=== PATIENT | male | born 1990 | race Hispanic/Latino ===

== ENCOUNTER 2021-11-14 18:12 | Emergency (ER) | payer SELFPAY ==
--- NOTE | 2021-11-14 18:32 | EDPHYS ---
Physician Documentation [facility] Name: Blake Barron Jr Age: 31 yrs Sex: Male : 1990 Arrival Date: 11/14/2021 Time: 18:15 Bed 16 Private MD: ED Physician David Arciniega HPI: 11/14 18:46 This 31 yrs old Male presents to ER via Ambulatory with complaints of Skin kb Problem - chest/abd. 18:46 The patient has not experienced similar symptoms in the past. The patient has not kb recently seen a physician. Historical: - Allergies: 18:19 No Known Allergies; jd3 - Home Meds: 18:19 None [Active]; jd3 - PMHx: 18:19 None; jd3 - PSHx: 18:19 None; jd3 - Immunization history:: Adult Immunizations up to date, Client reports having NOT received the Covid vaccine. Flu vaccine is not up to date. - Social history:: Smoking status: Reported history of juuling and/or vaping. ROS: 18:45 Constitutional: Negative for fever, chills, and weight loss. kb 18:45 Skin: Positive for abscess, of the chest and abdomen. 18:45 All other systems are negative. Exam: 18:45 Constitutional: This is a well developed, well nourished patient who is awake, alert, kb and in no acute distress. Head/Face: Normocephalic, atraumatic. ENT: Moist Mucous membranes Respiratory: Respirations even and unlabored. No increased work of breathing. Talking in full sentences MS/ Extremity: Pulses equal, no cyanosis. Neurovascular intact. Full, normal range of motion. Neuro: Awake and alert, GCS 15, oriented to person, place, time, and situation. Moves all extremities. Normal gait. Psych: Awake, alert, with orientation to person, place and time. Behavior, mood, and affect are within normal limits. 18:45 Skin: abscess, that is small, of the abdomen and chest, several small abscesses to chest wall, one small abscess to abd. No drainable abscesses. Vital Signs: 18:19 BP 157 / 92; Pulse 79; Resp 18 S; Temp 99.5(TE); Pulse Ox 99% on R/A; Weight 104.33 kg jd3 (R); Height 5 ft. 6 in. (167.64 cm) (R); Pain 0/10; 18:19 Body Mass Index 37.12 (104.33 kg, 167.64 cm) jd3 MDM: 18:20 Patient medically screened. kb 18:31 Data reviewed: vital signs, nurses notes. Data interpreted: Pulse oximetry: on room air kb is 99 %. Interpretation: normal. Counseling: I had a detailed discussion with the patient and/or guardian regarding: the historical points, exam findings, and any diagnostic results supporting the discharge/admit diagnosis, the need for outpatient follow up, a family practitioner, to return to the emergency department if symptoms worsen or persist or if there are any questions or concerns that arise at home. Administered Medications: 19:18 Drug: Bactrim (trimethoprim-sulfamethoxazole) (160 mg-800 mg (DS) 1 tablet Route: PO; ll3 Disposition: 11/15 07:25 Co-signature as Attending Physician, David Arciniega MD I agree with the assessment and kdr plan of care. Disposition Summary: 11/14/21 18:32 Discharge Ordered Location: Home kb Condition: Stable kb Diagnosis - Local infection of the skin and subcutaneous tissue, unspecified kb Followup: kb - With: Emergency Department - When: As needed - Reason: Worsening of condition Followup: kb - With: Private Physician - When: 2 - 3 days - Reason: Recheck today's complaints, Continuance of care, Re-evaluation by your physician Discharge Instructions: - Discharge Summary Sheet kb - Skin Abscess, [id number] kb - Form - Return To Work tw5 Forms: - Medication Reconciliation Form kb - Thank You Letter kb - Antibiotic Education kb - Prescription Opioid Use kb - Work release form tw5 Prescriptions: - Bactrim DS 800-160 mg Oral Tablet - take 1 tablet by ORAL route every 12 hours for 10 days; 20 tablet; Refills: 0, kb Product Selection Permitted Signatures: Quyen Bella, ELENA-Ju PARKER-David Moise MD MD kdr Davies, Jonathon, RN RN jd3 Mahesh Davila RN RN ll3
--- NOTE | 2021-11-14 18:32 | ER ---
Nurse's Notes [facility] Name: Blake Barron Jr Age: 31 yrs Sex: Male : 1990 Arrival Date: 11/14/2021 Time: 18:15 Bed 16 Private MD: Diagnosis: Local infection of the skin and subcutaneous tissue, unspecified Presentation: 11/14 18:18 Chief complaint: Patient states: "I got these skin problems on my stomach and my chest. jd3 I need to get them looked at.". Coronavirus screen: At this time, the client does not indicate any symptoms associated with coronavirus-19. Ebola Screen: No symptoms or risks identified at this time. Initial Sepsis Screen: Does the patient meet any 2 criteria? No. Patient's initial sepsis screen is negative. Does the patient have a suspected source of infection? No. Patient's initial sepsis screen is negative. Risk Assessment: Do you want to hurt yourself or someone else? Patient reports no desire to harm self or others. Onset of symptoms was November 14, 2021. 18:18 Method Of Arrival: Ambulatory jd3 18:18 Acuity: EMPERATRIZ 4 jd3 Triage Assessment: 19:18 General: Appears comfortable, Behavior is calm. Pain: Denies pain. ll3 Historical: - Allergies: 18:19 No Known Allergies; jd3 - Home Meds: 18:19 None [Active]; jd3 - PMHx: 18:19 None; jd3 - PSHx: 18:19 None; jd3 - Immunization history:: Adult Immunizations up to date, Client reports having NOT received the Covid vaccine. Flu vaccine is not up to date. - Social history:: Smoking status: Reported history of juuling and/or vaping. Screenin:18 Abuse screen: Denies threats or abuse. Nutritional screening: No deficits noted. ll3 Tuberculosis screening: No symptoms or risk factors identified. Fall Risk None identified. Vital Signs: 18:19 BP 157 / 92; Pulse 79; Resp 18 S; Temp 99.5(TE); Pulse Ox 99% on R/A; Weight 104.33 kg jd3 (R); Height 5 ft. 6 in. (167.64 cm) (R); Pain 0/10; 18:19 Body Mass Index 37.12 (104.33 kg, 167.64 cm) jd3 ED Course: 18:15 Patient arrived in ED. as 18:19 Triage completed. jd3 18:19 Quyen Bella FNP-C is [facility]. kb 18:19 David Arciniega MD is Attending Physician. kb 18:20 Arm band placed on. jd3 19:18 Patient has correct armband on for positive identification. Call light in reach. Side ll3 rails up X 1. 19:18 No provider procedures requiring assistance completed. Patient did not have IV access ll3 during this emergency room visit. Administered Medications: 19:18 Drug: Bactrim (trimethoprim-sulfamethoxazole) (160 mg-800 mg (DS) 1 tablet Route: PO; ll3 Outcome: 18:32 Discharge ordered by . kb 19:18 Discharged to home ambulatory. ll3 19:18 Condition: stable 19:18 Discharge instructions given to patient, Instructed on discharge instructions, follow up and referral plans. medication usage, Demonstrated understanding of instructions, follow-up care, medications, Prescriptions given X 1. 19:19 Patient left the ED. ll3 Signatures: Quyen Bella FNP-C FNP-Yany Eason Jonathon RN RN jd3 Mahesh Davila RN RN ll3
[2021-11-14] MEDS ORDERED: SMZ./TMP. 800/160 MG TABLET ONE (19:14)
[2021-11-15 04:09] VITALS: BP 157/92; TEMP 99.5; O2SAT 99
== END 2021-11-14 19:19 | disposition home or self-care (01) ==
LOC: ER 18:12
DX: L08.9 Local infection of the skin and subcutaneous tissue, unspecified (principal)
CPT/HCPCS: 99283

== ENCOUNTER 2021-11-27 20:10 | Emergency (ER) | payer SELFPAY ==
--- OUTSIDE RECORDS SUMMARY | 2021-11-27 20:14 | XMS REPORT | Continuity of Care Document ---
:1990 Author Organization [facility] t Address [address] [place] [address] Care Team Providers Name Role Phone GURINDER Attending Clinician Unavailable GURINDER Admitting Clinician Unavailable Payers Payer Name Policy Type Policy Number Effective Date Expiration Date S ource Problems This patient has no known problems. Allergies, Adverse Reactions, Alerts This patient has no known allergies or adverse reactions. Medications This patient has no known medications. Procedures This patient has no known procedures. Encounters Start End Encounter Admission Attending Care Care Encounter Source Date/Time Date/Time Type Type Clinicians Facility Department ID 2021-09-05 2021-09-05 Outpatient SHELL JIANG [facility] [phone] [place] 07:08:00 07:08:00 _ANN da [facility] 2020-05-02 2020-05-02 Outpatient SHELL JIANG [facility] [phone] [place] 03:12:00 03:12:00 _ANN [id number] da [facility] 2020-04-18 2020-04-18 Outpatient CHERYL_SIMIN JIANG [facility] [phone] [place] 11:01:00 11:01:00 _ANN [id number] da [facility] Results This patient has no known results.
--- NOTE | 2021-11-27 21:47 | ER ---
Nurse's Notes [facility] Name: Blake Barron Jr Age: 31 yrs Sex: Male : 1990 Arrival Date: 11/27/2021 Time: 20:15 Bed Waiting Private MD: Diagnosis: ED Course: 11/27 20:15 Patient arrived in ED. kz 20:57 [facility] cp 20:57 Stuart Ribeiro MD is Attending Physician. cp 21:08 Patient's name was called from ER [employer]. No response. lp1 21:30 Patient's name was called from ER [employer]. No response. Unable to locate patient. Will lp1 disposition as left without being seen by a provider. Administered Medications: No medications were administered Outcome: 21:46 Patient left the ED. lp1 Signatures: Katie Langley RN RN lp1 Flynn Aragon PA PA cp Zapata, Kelly k
== END 2021-11-27 21:46 | disposition left against medical advice (07) ==
LOC: ER 20:10
DX: Z02.9 Encounter for administrative examinations, unspecified (principal)

== ENCOUNTER 2021-11-28 18:00 | Emergency (ER) | payer SELFPAY ==
--- OUTSIDE RECORDS SUMMARY | 2021-11-28 18:06 | XMS REPORT | Continuity of Care Document ---
:1990 Author Organization [facility] t Address [address] [place] [place] [address] Care Team Providers Name Role Phone GURINDER [...] Department ID 2021-09-05 2021-09-05 Outpatient SHELL JIANG [facility] [phone] [place] 07:08:00 07:08:00 _ANN da [facility] 2020-05-02 2020-05-02 Outpatient SHELL JIANG [facility] [phone] [place] 03:12:00 03:12:00 _ANN [id number] da [facility] 2020-04-18 2020-04-18 Outpatient CHERYL_SIMIN JIANG [facility] [phone] [place] 11:01:00 11:01:00 _ANN [id number] da [facility] Results This patient has no known results.
[2021-11-28 19:35] LABS: SARS-COV-2 RT PCR NEGATIVE (NEGATIVE)
--- NOTE | 2021-11-28 19:37 | EDPHYS ---
Physician Documentation [facility] Name: Blake Barron Jr Age: 31 yrs Sex: Male : 1990 Arrival Date: 11/28/2021 Time: 18:01 Bed Waiting Private MD: MG Physician Flynn Tobias HPI: 11/28 19:02 This 31 yrs old Male presents to ER via Ambulatory with complaints of Sore la1 Throat, Cough. 19:02 The patient presents with sore throat. The patient describes throat pain as burning. la1 Onset: The symptoms/episode began/occurred 2 day(s) ago. Severity of symptoms: At their worst the symptoms were mild. Modifying factors: The symptoms are alleviated by nothing, the symptoms are aggravated by swallowing, Patient's oral intake status: good The patient has had contact with sick mother. Associated signs and symptoms: Pertinent positives: cough. The patient has not experienced similar symptoms in the past. Cough and sore throat. Historical: - Allergies: 18:38 No Known Allergies; ab2 - PMHx: 18:38 None; ab2 - PSHx: 18:38 None; ab2 - Immunization history:: Adult Immunizations up to date. - Social history:: Smoking status: Reported history of juuling and/or vaping. ROS: 19:02 Eyes: Negative for injury, pain, redness, and discharge, Cardiovascular: Negative for la1 chest pain, palpitations, and edema, Abdomen/GI: Negative for abdominal pain, nausea, vomiting, diarrhea, and constipation, Back: Negative for injury and pain, MS/Extremity: Negative for injury and deformity, Neuro: Negative for headache, weakness, numbness, tingling, and seizure. 19:02 Constitutional: Positive for malaise. 19:02 ENT: Positive for sore throat. 19:02 Respiratory: Positive for cough. Exam: 19:03 Constitutional: This is a well developed, well nourished patient who is awake, alert, la1 and in no acute distress. Head/Face: Normocephalic, atraumatic. Eyes: Pupils equal round and reactive to light, extra-ocular motions intact. ENT: Nares patent. No nasal discharge, no septal abnormalities noted. Tympanic membranes are normal and external auditory canals are clear. Oropharynx with no redness, swelling, or masses, exudates, or evidence of obstruction, uvula midline. Mucous membranes moist. Neck: Trachea midline, no thyromegaly or masses palpated, and no cervical lymphadenopathy. Chest/axilla: Normal chest wall appearance and motion. Nontender with no deformity. No lesions are appreciated. Cardiovascular: Regular rate and rhythm with a normal S1 and S2. No gallops, murmurs, or rubs. Normal PMI, no JVD. No pulse deficits. Respiratory: Lungs have equal breath sounds bilaterally, clear to auscultation and percussion. No rales, rhonchi or wheezes noted. No increased work of breathing, no retractions or nasal flaring. Abdomen/GI: Soft, non-tender, with normal bowel sounds. No distension or tympany. No guarding or rebound. No evidence of tenderness throughout. MS/ Extremity: Pulses equal, no cyanosis. Neurovascular intact. Full, normal range of motion. Vital Signs: 18:37 BP 141 / 82; Pulse 68; Resp 17; Temp 97.7; Pulse Ox 98% ; Weight 104.33 kg; Height 5 ab2 ft. 6 in. (167.64 cm); Pain 6/10; 18:37 Body Mass Index 37.12 (104.33 kg, 167.64 cm) ab2 MDM: 19:19 Patient medically screened. la1 19:36 Data reviewed: vital signs, nurses notes, lab test result(s), and as a result, I will la1 discharge patient. Data interpreted: Pulse oximetry: on room air is 98 %. Interpretation: normal. Counseling: I had a detailed discussion with the patient and/or guardian regarding: the historical points, exam findings, and any diagnostic results supporting the discharge/admit diagnosis, the need for outpatient follow up, a family practitioner, to return to the emergency department if symptoms worsen or persist or if there are any questions or concerns that arise at home. 11/28 18:40 Order name: Strep; Complete Time: 19:18 ab2 11/28 18:40 Order name: COVID-19/FLU A+B (Document "Date of Onset" if Symptomatic) ab2 11/28 18:57 Order name: Throat Culture EDMS Administered Medications: No medications were administered Disposition Summary: 11/28/21 19:37 Discharge Ordered Location: Home la1 Problem: new la1 Symptoms: have improved la1 Condition: Stable la1 Diagnosis - Acute upper respiratory infection, unspecified la1 Followup: la1 - With: Private Physician - When: 1 week - Reason: Recheck today's complaints, Re-evaluation by your physician Discharge Instructions: - Discharge Summary Sheet la1 - Sore Throat la1 - Viral Respiratory Infection la1 - Cough, Adult la1 Forms: - Medication Reconciliation Form la1 - Work release form la1 - Thank You Letter la1 Addendum: 11/30/2021 07:50 Co-signature as Attending Physician, Flynn Tobias MD I agree with the assessment and c kingston plan of care. Signatures: Dispatcher [employer] EDFlynn Sanford MD MD cha Attema, Lee, SCHOOL PHYSICAL THERAPIST-C SCHOOL PHYSICAL THERAPIST-Cla1 Dl Gruber
--- NOTE | 2021-11-28 19:37 | ER ---
Nurse's Notes [facility] Name: Blake Barron Jr Age: 31 yrs Sex: Male : 1990 Arrival Date: 11/28/2021 Time: 18:01 Bed Waiting Private MD: Diagnosis: Acute upper respiratory infection, unspecified Presentation: 11/28 18:37 Chief complaint: Patient states: "My throat has been sore and I've been coughing up ab2 mucous. My mom has strep and for me to go to work I have to be cleared. I just need a strep test.". Coronavirus screen: Vaccine status: Patient reports being unvaccinated. Client denies travel out of the [place] in the last 14 days. cough unrelated to allergies, runny nose, sore throat, Client presents with at least one sign or symptom that may indicate coronavirus-19. Standard/surgical mask placed on the client. Provider contacted for isolation considerations. Ebola Screen: Patient negative for fever greater than or equal to 101.5 degrees Fahrenheit, and additional compatible Ebola Virus Disease symptoms Patient denies exposure to infectious person. Patient denies travel to an Ebola-affected area in the 21 days before illness onset. No symptoms or risks identified at this time. Initial Sepsis Screen: Does the patient meet any 2 criteria? No. Patient's initial sepsis screen is negative. Does the patient have a suspected source of infection? No. Patient's initial sepsis screen is negative. Risk Assessment: Do you want to hurt yourself or someone else? Patient reports no desire to harm self or others. Onset of symptoms is unknown. 18:37 Method Of Arrival: Ambulatory ab2 18:37 Acuity: EMPERATRIZ 4 ab2 Triage Assessment: 18:39 General: Appears in no apparent distress. comfortable, Behavior is calm, cooperative, ab2 appropriate for age. EENT: Reports nasal discharge pain when swallowing. Respiratory: Airway is patent Respiratory effort is even, unlabored, Respiratory pattern is regular, symmetrical. Historical: - Allergies: 18:38 No Known Allergies; ab2 - PMHx: 18:38 None; ab2 - PSHx: 18:38 None; ab2 - Immunization history:: Adult Immunizations up to date. - Social history:: Smoking status: Reported history of juuling and/or vaping. Screenin:40 Abuse screen: Denies threats or abuse. Denies injuries from another. Nutritional ab2 screening: No deficits noted. Tuberculosis screening: No symptoms or risk factors identified. Fall Risk None identified. Assessment: 18:38 Pain: Complains of pain in throat. Respiratory: Airway is patent Respiratory effort is ab2 even, unlabored, Vital Signs: 18:37 BP 141 / 82; Pulse 68; Resp 17; Temp 97.7; Pulse Ox 98% ; Weight 104.33 kg; Height 5 ab2 ft. 6 in. (167.64 cm); Pain 6/10; 18:37 Body Mass Index 37.12 (104.33 kg, 167.64 cm) ab2 ED Course: 18:01 Patient arrived in ED. as 18:38 Triage completed. ab2 18:39 Arm band placed on right wrist. ab2 18:41 COVID-19/FLU A+B (Document "Date of Onset" if Symptomatic) Sent. ab2 18:41 Strep Sent. ab2 18:42 Fernando Pate [facility]C [facility] la1 18:42 Flynn Tobias MD is Attending Physician. la1 19:40 No provider procedures requiring assistance completed. Patient did not have IV access ab2 during this emergency room visit. Administered Medications: No medications were administered Outcome: 19:37 Discharge ordered by . la1 19:40 Discharged to home ambulatory. ab2 19:40 Condition: good 19:40 Discharge instructions given to patient, Instructed on discharge instructions, follow up and referral plans. Demonstrated understanding of instructions, follow-up care. 19:41 Patient left the ED. ab2 Signatures: Yany Bolden Lee, FNP-C FNP-Dl Hale ab2
[2021-11-29 02:48] VITALS: BP 141/82; TEMP 97.7; O2SAT 98
== END 2021-11-28 19:41 | disposition home or self-care (01) ==
LOC: ER 18:00
DX: J06.9 Acute upper respiratory infection, unspecified (principal); Z20.822 Contact with and (suspected) exposure to COVID-19
CPT/HCPCS: 0240U; 87070; 87081; 99283